=== PATIENT | male | born 1955 | race Caucasian/White ===

== ENCOUNTER 2016-12-07 16:50 | Inpatient (IN) ==
--- NOTE | 2016-12-07 20:46 | HISTORY AND PHYSICAL ---
HISTORY: This is a 61-year-old who was transferred here from [place] to [facility]. He was followed by Dr. Chen. He has oropharyngeal cancer, old left frontal infarct, severe emphysema. I think therapy was last given on 09/03/2015. He smokes 8 cigarettes a day. Drinks on occasion. He uses marijuana on occasion. PAST SURGICAL HISTORY: Status post tonsillectomy. Oral surgery. Had a mass removed from his throat 2013. REVIEW OF SYSTEMS: Apparently he has been losing weight. Not eating. Not taking his medications and they wanted to pursue hospice. He has had a head and cervical spine CT done 10/05/2015. Stable degenerative disk disease C5-6, C6-7, nondisplaced left posterior first rib fracture at that time. Nondisplaced left 1st rib fracture. He has had a clavicle x-ray done on 12/05/2016, old united fracture midshaft right clavicle. He has continued to lose weight. He was treated I think for schizophrenia and depression and wanted to go on hospice. They have tried to put an IV in to help him with fluids and he keeps pulling the IV out. He has a history of coronary artery disease. History of myocardial infarction in the past. Severe emphysema. He complains of sore mouth. PHYSICAL EXAMINATION: GENERAL: On transfer, thin, protein-calorie malnourished anorexic white male. HEENT: Poor dentition. Mouth is sore. No specific cervical adenopathy. LUNGS: Decreased breath sounds both bases. Otherwise clear. CARDIOVASCULAR: Regular rate without murmur or S3. ABDOMEN: Soft. SKIN: Warm and dry. ASSESSMENT AND PLAN: 1. Throat oropharyngeal cancer. Not eating. Protein calorie malnutrition. Refuses IV. No appetite and he wants to pursue hospice as he continues to make decline. 2. Schizophrenia. I believe what they were treating for over at [place]. He is taking some Prolixin. 3. Severe protein calorie malnutrition. 4. Paranoid schizophrenia and bipolar disorder. cc: Masood Hancock MD
[2016-12-07] MEDS: DEPAKENE LIQUID PO SCH (20:48)
[2016-12-07] MEDS: REMERON SOLTAB PO SCH (20:48)
[2016-12-07] MEDS: MBX SOLUTION MT PRN (20:50)
[2016-12-08 06:43] LABS: BASO% 0.2 % (0.0-0.8); EOS# 0.09 X1000 (0.0-0.7); EOS% 0.9 % (0.0-10.0); HEMATOCRIT 33.8 % (42.0-52.0); HEMOGLOBIN 10.4 g/dL (14.0-18.0); LYMPH# 0.33 X1000 (1.2-3.4); LYMPH% 3.4 % (20.5-51.1); MANUAL DIFF NEEDED? YES; MCHC 30.8 g/dL (33-37); MCV 94.2 FL (81-99); MONO# 0.32 X1000 (0.11-0.59); MONO% 3.3 % (1.7-9.3); NEUT% 92.2 % (42.2-75.2); PLT 332 X1000 (130-400); RBC 3.59 XMIL (4.7-6.1)
[2016-12-08 06:45] LABS: AGAP 14; ALBUMIN 3.2 g/dL (3.5-5.0); ALKALINE PHOSPHATASE 82 U/L (32-122); BUN 23 mg/dL (8-22); CALCIUM 9.3 mg/dL (8.8-10.2); CHLORIDE 106 mmol/L (98-107); COSMO 293; GOT 23 U/L (10-34); GPT 20 U/L (10-44); MAGNESIUM 2.2 mg/dL (1.5-2.7); POTASSIUM 4.6 mmol/L (3.5-5.1); SODIUM 146 mmol/L (136-145); TCO2 26 mmol/L (25-35); TOTAL PROTEIN 7.2 g/dL (6.3-8.3)
[2016-12-08 06:58] LABS: BANDS 6 % (0-1); LYMPHS 4 % (21-51); MONO 3 % (1-9)
[2016-12-08] MEDS: THERA M PLUS PO SCH (08:01)
[2016-12-08] MEDS: NEURONTIN PO SCH ×4 (08:02→18:18)
[2016-12-08] MEDS: ARTANE PO SCH ×3 (08:02→17:59)
--- NOTE | 2016-12-08 08:06 | Diag Imaging Result Doc PS360 ---
EXAM: CHEST-PORTABLE INDICATION: weight loss TECHNIQUE: One view COMPARISON: 11/30/2016 FINDINGS: Prominent COPD changes are again noted. There is increased opacity at the right lung base as compared to the previous study suggesting possible developing infiltrate. The patient is rotated toward the right. Multiple old right rib fractures and an old clavicular fracture are again noted. Cardiac silhouette is stable. IMPRESSION: Increased opacity at the right lung base suggesting possible developing infiltrate. Stable chest, otherwise. Electronically signed by Adam Murdock 12/08/2016 8:04 AM
[2016-12-08] MEDS ORDERED: ATIVAN IM ONE (10:37)
--- NOTE | 2016-12-08 14:57 | PROGRESS NOTE ---
DATE: 12/08/2016 SUBJECTIVE: When I evaluated this patient he was resting comfortably in bed. He is alert. I am not quite sure if he is oriented or not because I cannot understand what he is saying. We do have a phone number and apparently the printed circuit boards contact printer is a asw/asuw tactical air controller. He has refused IV, he does not have IV treatment, he does not have appetite and he wants to go ahead and get hospice care. OBJECTIVE: Vital Signs: Temperature 97.9 degrees, pulse 90, respiratory rate 17, blood pressure 128/79, oxygen saturation 99 on room air. HEENT: Head normocephalic. No trauma. PERRLA. Neck: Supple. No JVD. No masses. Central trachea. Chest: Clear to auscultation. No wheezing. No rales. Abdomen: Soft, nontender, nondistended. Extremities: No edema. No clubbing. No cyanosis. decreased muscle mass. Neurological: The patient is alert. I am not sure if this patient is confused or not but he is following commands. LABORATORY: WBC 9.7, hemoglobin 10.4, hematocrit 33.8, platelets 332,000. Sodium 146, potassium 4.6, chloride 106, bicarbonate 26, BUN 23, creatinine 0.8, glucose 72, calcium 9.3, albumin 3.2. ASSESSMENT AND PLAN: 1. Throat/oropharyngeal cancer. Like I mentioned before, this patient is not eating. He has severe Protein calorie malnutrition. He is refusing IV treatment and he wants hospice. general i farmworker on board but we do not have a place to send this patient with hospice at this moment. We will try to contact his asw/asuw tactical air controller. 2. Schizophrenia and bipolar disorder. Aware. Continue with the same management. 3. Severe protein calorie malnutrition. This patient is not eating and he is refusing any kind of treatment. He has been placed on a full liquid diet. Will monitor. cc: Aquiles Kraft MD
[2016-12-08] MEDS: ATIVAN IM PRN (16:18)
[2016-12-08] MEDS: DEPAKENE LIQUID PO SCH (20:36)
[2016-12-08] MEDS: REMERON SOLTAB PO SCH (20:36)
[2016-12-08] MEDS: MBX SOLUTION MT PRN (20:36)
[2016-12-09 07:26] LABS: AGAP 8; BUN 19 mg/dL (8-22); CALCIUM 8.8 mg/dL (8.8-10.2); CHLORIDE 105 mmol/L (98-107); COSMO 285; POTASSIUM 3.9 mmol/L (3.5-5.1); SODIUM 142 mmol/L (136-145); TCO2 29 mmol/L (25-35)
[2016-12-09 07:31] LABS: BASO% 0.1 % (0.0-0.8); EOS% 1.1 % (0.0-10.0); HEMATOCRIT 30.7 % (42.0-52.0); HEMOGLOBIN 9.6 g/dL (14.0-18.0); LYMPH# 0.41 X1000 (1.2-3.4); LYMPH% 4.5 % (20.5-51.1); MANUAL DIFF NEEDED? YES; MCH 29.1 PG (27-31); MCHC 31.3 g/dL (33-37); MONO# 0.35 X1000 (0.11-0.59); MONO% 3.8 % (1.7-9.3); MPV 9.2 FL (7.4-10.4); NEUT% 90.5 % (42.2-75.2); PLT 291 X1000 (130-400)
[2016-12-09 07:53] LABS: BANDS 6 % (0-1); LYMPHS 4 % (21-51); MONO 2 % (1-9)
[2016-12-09] MEDS: THERA M PLUS PO SCH (09:53)
[2016-12-09] MEDS: ARTANE PO SCH ×3 (09:53→18:01)
[2016-12-09] MEDS: NEURONTIN PO SCH ×3 (09:54→18:01)
--- NOTE | 2016-12-09 14:28 | PROGRESS NOTE ---
DATE: 12/09/2016 SUBJECTIVE: This patient is looking better, he has been refusing food on and off, apparently he ate just 25% of his food, I have consulted Hematology Oncology service. Apparently he has been having some visits to their office before, but he stopped doing that. OBJECTIVE: Vital Signs: Temperature 98 degrees, pulse 90, respiratory rate 23, blood pressure 116/74, oxygen saturation 94% on room air. HEENT: Head normocephalic. No trauma. PERRLA. Neck: Supple. No JVD. No masses. Central trachea. Poor dentition. Chest: Clear to auscultation. No wheezing. No rales. Abdomen: Soft, nontender, nondistended. Extremities: No edema. No clubbing. No cyanosis. Decreased muscle mass. Neurological: The patient is alert, it is really hard to understand what he is saying, but he is following commands. LABORATORY: WBC 9.1, hemoglobin 9.6, hematocrit 30.7, platelets 291,000. Sodium 142, potassium 3.9, chloride 105, bicarbonate 29, BUN 19, creatinine 0.6, glucose 87, calcium 8.8. ASSESSMENT AND PLAN: 1. Throat/oropharyngeal cancer, Hematology/Oncology has been consulted. Apparently he has been in their office before, but he did not go to his appointments. He has been refusing IV treatment and apparently he wants hospice, but I am not quite sure about this information. He was at [facility] and they sent this patient over here because he was not eating and declining. 2. Schizophrenia and bipolar disorder. Aware. Continue with the same management. 3. Severe protein calorie malnutrition. This patient is not eating and he is refusing any kind of treatment. He has been placed on full liquid diet. We will monitor. Since this patient does not have any family members, the director social service is on board. 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 cc: Aquiles Kraft MD
[2016-12-09] MEDS: ATIVAN IM PRN (15:33)
--- NOTE | 2016-12-09 16:29 | CONSULTATION ---
DATE OF CONSULTATION: 12/09/[address] Castro. Consultation is for head and neck cancer, patient known to us. HISTORY OF PRESENT ILLNESS: Mr. Delgado is a 61-year-old male who is known to us as we have previously treated him for head and neck cancer who apparently has been at [facility] being treated for psych issues. Patient has a history of schizophrenia. The patient has been transferred to [facility] due to his inability to eat and for weight loss and overall decline in performance status. The patient previously completed Erbitux with radiation therapy. His last dose of Erbitux was 09/14/2016. He finished radiation therapy on 09/25. Patient was last seen in our office around 09/25/2016. Since that time he has been admitted to [facility] as mentioned previously. PAST MEDICAL PROBLEMS: 1. Paranoid schizophrenia. 2. Neuropathy. SURGICAL HISTORY: Throat biopsy in 2012, 2016. SOCIAL HISTORY: Patient lives in a alf and is supervised closely in regards to his medications and meals. Current smoker. He also sometimes chews tobacco. The patient also drinks alcohol occasionally. FAMILY HISTORY: His father is alive. There is a family history of an unknown type of cancer. As far as noted, the patient has no contact with his family. REVIEW OF SYSTEMS: Ten point review of systems has been completed. It is negative except for as per the HPI. PHYSICAL EXAMINATION: Vital Signs: Temperature in 98.0 degrees, heart rate 90 , respirations 23, blood pressure 116/74, O2 saturation 94% on room air. General: male who is rather thin lying on his stomach in his hospital bed eating soup. No one at bedside. HEENT : Head appears to be normocephalic atraumatic. Eyes: Pupils equal, round, reactive. Respiratory: Patient appears to have normal respiratory effort. Gastrointestinal: Abdomen does not appear to be distended. Musculoskeletal: No obvious bony abnormalities. Extremities: No swelling noted. Neurologic: Patient is alert. Moves all extremities well. In no acute distress. LABS AND STUDIES: White blood cells 9.19, hemoglobin 9.6, hematocrit 30.7, platelets 291,000. Sodium 142, potassium 3.9, chloride 105, CO2 29, BUN 19, creatinine 0.6, glucose 87. ASSESSMENT/PLAN: 1. T4a, N2b, M0 stage FLORES [id number]-[id number] cancer. Patient has now completed concurrent chemotherapy and radiation with Erbitux as of 09/25/2016. Patient has yet to follow up with us after his treatment. Typically, repeat scans after radiation are done 6- 8 weeks out from completion of treatment. Most recent scan we have currently is from July 2016 prior to initiation of treatment. Currently there is a discussion about this patient being admitted to hospice. There has not been any recent evaluation in regards to the patient' s cancer status as he did not get a post treatment scan. We will continue to follow along and discuss with the patient and see if he would be willing to do restaging scans potentially. 2. Schizophrenia. Continue current management. 3. Severe protein calorie malnutrition. The patient is currently taking some things by mouth. Continue to monitor closely. Will continue to treat electrolytes and replace them as needed. 4. Decline in performance status. Again his current cancer status is unknown due to not having any repeat scans post treatment. We want to thank you for consulting us on Mr. Delgado. We will continue to follow along and adjust our treatment plan as per his hospital course. Dictated by FELICE Ring for Bhakti Roberts MD cc: Bhakti Roberts MD I have seen and examined the patient and agree with the above A/P. Bhakti Roberts MD MTDD
[2016-12-09] MEDS: HALDOL IV PRN (18:49)
[2016-12-09] MEDS: REMERON SOLTAB PO SCH (21:18)
[2016-12-09] MEDS: DEPAKENE LIQUID PO SCH (21:19)
[2016-12-09] MEDS: MBX SOLUTION MT PRN (21:19)
[2016-12-10] MEDS: ARTANE PO SCH ×3 (09:06→17:54)
[2016-12-10] MEDS: THERA M PLUS PO SCH (09:06)
[2016-12-10] MEDS: NEURONTIN PO SCH ×3 (09:06→17:54)
[2016-12-10] MEDS: ATIVAN IM PRN ×2 (10:10→14:24)
--- NOTE | 2016-12-10 12:59 | PROGRESS NOTE ---
DATE: 12/10/2016 SUBJECTIVE: This patient is looking better. When I examined the patient this patient was eating oatmeal. He has been tolerating diet today about 50%. Hematology Oncology evaluated this patient. This patient has a cancer at the base of his tongue. We will continue to monitor. Basically he is homeless and we are trying to get placement for him. There is a possibility of hospice care with this patient. OBJECTIVE: Vital Signs: Temperature 98.5 degrees, pulse 103, respiratory rate 18, blood pressure 141/88, oxygen saturation 96 on room air. HEENT: Head normocephalic. No trauma. PERRLA. Neck: Supple. No JVD. No masses. Central trachea. Poor dentition. Chest: Clear to auscultation. No wheezing. No rales. Abdomen: Soft, nontender, nondistended. Extremities: No edema. No clubbing. No cyanosis. Decreased muscle mass. Neurological: The patient is alert. He is really hard to understand what he is saying. He cannot articulate very well his words. He is following commands and he is tolerating food. LABORATORY: No lab work done today. ASSESSMENT AND PLAN: 1. Cancer at the level of the base of his tongue. Hematology/Oncology is following this patient. He did see receive treatment but he did not go for followup or new of studies. At this point, we do not know if this cancer is worse or better. Hematology/Oncology on board. 2. Schizophrenia and bipolar disorder. Aware. Continue with the same management. 3. Severe protein calorie malnutrition. This patient is tolerating food mostly full liquid diet. He is refusing any kind of treatment and IV line placement, will monitor. Since this patient does not have any family members, he is homeless, the family welfare social work professor is on board. 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 cc: Aquiles Kraft MD
[2016-12-10] MEDS: HALDOL IV PRN (13:02)
[2016-12-10] MEDS: HALDOL IM PRN (19:00)
[2016-12-10] MEDS: REMERON SOLTAB PO SCH (21:01)
[2016-12-10] MEDS: DEPAKENE LIQUID PO SCH (21:01)
[2016-12-10] MEDS: MBX SOLUTION MT PRN (21:02)
[2016-12-11] MEDS: ARTANE PO SCH ×3 (09:01→21:36)
[2016-12-11] MEDS: THERA M PLUS PO SCH (09:01)
[2016-12-11] MEDS: NEURONTIN PO SCH ×3 (09:01→21:36)
[2016-12-11] MEDS: ATIVAN IM PRN ×2 (09:02→21:36)
--- NOTE | 2016-12-11 17:10 | PROGRESS NOTE ---
DATE: 12/11/2016 SUBJECTIVE: No acute events. This patient is doing fine. He is tolerating food about 50%. OBJECTIVE: Vital Signs: Temperature 97.7 degrees, pulse 86, respiratory rate 18, blood pressure 131/81, oxygen saturation 98 on room air. HEENT: Head normocephalic. No trauma. PERRLA. Neck: Supple. No JVD. No masses. Central trachea. Poor dentition. Chest: Clear to auscultation. No wheezing. No rales. Abdomen: Soft, nontender, nondistended. No hepatosplenomegaly. Extremities: No edema. No clubbing. No cyanosis. Decreased muscle mass. Neurological Examination: The patient is alert. He is really hard to understand what he is saying. He cannot articulate very well his words. He is following commands and he is tolerating food. LABORATORY: No lab work done today. ASSESSMENT AND PLAN: 1. Cancer at the level of the base of his tongue. Hematology/Oncology is following this patient. He did receive treatment but he did not go for followup or new studies. At this point, we do not know if this cancer is worse or better. 2. Schizophrenia and bipolar disorder. Aware. Continue with the same management. 3. Severe protein calorie malnutrition. This patient is tolerating food, mostly full liquid diet. He is refusing any kind of IV line placement or treatment. Since this patient does not have any family members, he is homeless, the social science research assistant is on board and she already contacted the state for evaluation and to coordinate a meeting with this patient. cc: Aquiles Kraft MD
[2016-12-11] MEDS: REMERON SOLTAB PO SCH (21:36)
[2016-12-11] MEDS: DEPAKENE LIQUID PO SCH ×2 (21:37→21:39)
[2016-12-12] MEDS: NEURONTIN PO SCH ×3 (09:48→18:09)
[2016-12-12] MEDS: THERA M PLUS PO SCH (09:48)
[2016-12-12] MEDS: ARTANE PO SCH ×3 (09:48→18:08)
--- NOTE | 2016-12-12 13:14 | PROGRESS NOTE ---
DATE: 12/12/2016 SUBJECTIVE: No acute events. This patient is doing fine. He is tolerating about the 50% of his food. OBJECTIVE: Vital Signs: Temperature 98.3 degrees, pulse 86, respiratory rate 18, blood pressure 130/73, O2 saturation 99 on room air. HEENT: Head normocephalic. No trauma. PERRLA. Neck: Supple. No JVD. No masses. Central trachea. Poor dentition. Chest: Clear to auscultation. No wheezing. No rales. Abdomen: Soft, nontender, nondistended. No hepatosplenomegaly. Extremities: No edema. No clubbing. No cyanosis. Neurological: The patient is alert. It is really hard to understand what he is saying because he cannot articulate very well his words. He is following commands and he is tolerating food. LABORATORY: No lab work done today. ASSESSMENT AND PLAN: 1. Cancer at the level of the base of his tongue. Hematology Oncology is following this patient. He did receive treatment but he did not go for a followup for neuro status. At this point, we do not know if his cancer is worse or better. 2. Schizophrenia and bipolar disorder. Aware. Continue with the same management. 3. Severe protein calorie malnutrition. This patient is tolerating food but mostly full liquid diet. He is refusing any kind of IV line placement or treatment. This patient is homeless. process worker is on board. She has already contacted the [facility] for evaluation and to coordinate a meeting with this patient and placement. cc: Aquiles Kraft MD
[2016-12-12] MEDS: DEPAKENE LIQUID PO SCH (21:25)
[2016-12-12] MEDS: ATIVAN IM PRN (21:26)
[2016-12-12] MEDS: REMERON SOLTAB PO SCH (21:26)
[2016-12-13] MEDS: ATIVAN IM PRN ×3 (02:12→22:26)
[2016-12-13 06:49] LABS: MANUAL DIFF NEEDED? NO
[2016-12-13 06:56] LABS: BASO% 0.3 % (0.0-0.8); EOS# 0.11 X1000 (0.0-0.7); EOS% 1.4 % (0.0-10.0); HEMATOCRIT 36.1 % (42.0-52.0); HEMOGLOBIN 10.9 g/dL (14.0-18.0); IMM GRAN# 0.04 X1000 (0.0-0.04); IMM GRAN% 0.5 % (0.0-0.5); LYMPH# 0.51 X1000 (1.2-3.4); LYMPH% 6.6 % (20.5-51.1); MCHC 30.2 g/dL (33-37); MCV 92.8 FL (81-99); MONO# 0.59 X1000 (0.11-0.59); MONO% 7.6 % (1.7-9.3); MPV 9.8 FL (7.4-10.4); NEUT% 83.6 % (42.2-75.2); PLT 372 X1000 (130-400); RBC 3.89 XMIL (4.7-6.1)
[2016-12-13 07:17] LABS: AGAP 12; BUN 17 mg/dL (8-22); CALCIUM 9.4 mg/dL (8.8-10.2); CHLORIDE 103 mmol/L (98-107); COSMO 283; POTASSIUM 4.2 mmol/L (3.5-5.1); SODIUM 142 mmol/L (136-145); TCO2 27 mmol/L (25-35)
[2016-12-13] MEDS: ARTANE PO SCH ×3 (10:40→18:07)
[2016-12-13] MEDS: NEURONTIN PO SCH ×3 (10:41→18:07)
[2016-12-13] MEDS: THERA M PLUS PO SCH (10:41)
[2016-12-13] MEDS: DURAGESIC 12 MICROGM/HR PATCH TD SCH (10:41)
[2016-12-13] MEDS: REMERON SOLTAB PO SCH (22:26)
[2016-12-13] MEDS: DEPAKENE LIQUID PO SCH (22:26)
[2016-12-14] MEDS: ARTANE PO SCH ×3 (09:15→18:40)
[2016-12-14] MEDS: ATIVAN IM PRN (09:16)
[2016-12-14] MEDS: NEURONTIN PO SCH ×3 (09:16→18:41)
[2016-12-14] MEDS: THERA M PLUS PO SCH (09:16)
[2016-12-14] MEDS: MBX SOLUTION MT PRN ×2 (12:56→23:08)
[2016-12-14] MEDS: REMERON SOLTAB PO SCH (23:08)
[2016-12-14] MEDS: DEPAKENE LIQUID PO SCH (23:08)
--- NOTE | 2016-12-15 00:29 | PROGRESS NOTE ---
DATE: 12/14/2016 SUBJECTIVE: Mr. Danny devine was sitting on a chair and eating some ice cream. OBJECTIVE: Vital signs: Temperature 97.4 degrees, pulse 90, respirations 18, blood pressure 143/81. HEENT: Pupils equal, round. Lungs: Clear in all lung jean-baptiste. Cardiovascular: Regular rhythm and rate without murmur or S3. Abdomen: Soft. Skin: Is warm and dry. LAB REVIEW: From the 16 hematocrit is stable. Chemistries look okay. ASSESSMENT AND PLAN: 1. Cancer the level base of the tongue, hematology, oncology is following the patient received treatment but did not go back for followup, at this point I do not know if his cancer is worse or better. 2. Schizophrenia, bipolar disorder. Continue same management. 3. Protein calorie malnutrition. Apparently he is starting to get a little food down and then question is what are we going to do where is he going go placement status, he has been followed by Dr. Bhakti Roberts, has a T4a N2BMO stage 4a base of tongue cancer. The patient has now completed concurrent chemotherapy and radiation with Erbitux 09/25/2016. Patient has yet to follow up with Dr. Roberts for treatment, typically repeat the scans in 6-8 weeks and see where we are. 4. Schizophrenia. 5. Severe protein calorie malnutrition. Encourage p.o. intake. 6. Decline in performance status. REVIEW OF PRESENT ORDERS: He is on valproic acid 375 mg at bedtime, Artane 5 mg t.i.d., multivitamin 1 a day, mirtazapine 15 mg at bedtime, Ativan 2 mg IM q.4 hours p.r.n., Haldol as needed, Neurontin 300 mg t.i.d., Fluphenazine 125 mg IM every 14 days, fentanyl patch 12 mcg q.72 hours. cc: Masood Hancock MD
[2016-12-15] MEDS: ATIVAN IM PRN (10:44)
[2016-12-15] MEDS: THERA M PLUS PO SCH (13:03)
[2016-12-15] MEDS: ARTANE PO SCH ×3 (13:03→16:59)
[2016-12-15] MEDS: NEURONTIN PO SCH ×3 (13:03→16:59)
--- NOTE | 2016-12-15 14:23 | DISCHARGE SUMMARY ---
ADMISSION DATE: 12/07/2016 DISCHARGE DATE: 12/15/2016 HISTORY OF PRESENT ILLNESS: This is a 61-year-old who was transferred from [facility]. He was not eating, He has oropharyngeal cancer, old left frontal infarct, severe emphysema, and he is status post tonsillectomy and oral surgery. He had a mass removed from his throat in 2013. He had a consultation with Dr. Roberts and Aurea Anna saw him. He has a T4a, N2b, M0 stage Aimee base- of-tongue cancer. Patient has completed concurrent chemotherapy, radiation, and Erbitux on 09/17/2016. The patient has not had any followup. Typically, they repeat scans and irradiation 6- 8 weeks after the 1st treatment. Most recent scan was from July 2013, prior to initiation of treatment. There is discussion about the patient being admitted to hospice and there has been no recent evaluation in the records, and did not get post treatment scan. Continued to follow. He has schizophrenia and he is not swallowing well. He will put food in and spit it out. He was admitted to hospital with the idea of getting hospice, but he has continued to get a little stronger. He is ambulating. He is putting food in his mouth and he will spit it out. DISCHARGE PLANS: I am not sure he has a place to go at this point and I believe [facility] is involved. He seems to be cooperative and awake and much more functional. The plan is to let him go to [facility] MEDICATIONS: At this point, will be fentanyl patch 12 mcg patch q.72 hours; Prolixin 125 mg IM q.14 days; Neurontin 300 mg t.i.d.; Remeron 15 mg at bedtime; multivitamin 1 daily; Artane 5 mg t.i.d.; valproic acid 375 mg at bedtime. DISPOSITION: We will discharge him to [facility] cc: Masood Hancock MD
[2016-12-15] MEDS: DEPAKENE LIQUID PO SCH (20:17)
[2016-12-15] MEDS: REMERON SOLTAB PO SCH (20:17)
[2016-12-15] MEDS: MBX SOLUTION MT PRN (20:17)
[2016-12-16] MEDS ORDERED: PROLIXIN-D IM SCH (09:00)
[2016-12-16] MEDS: NEURONTIN PO SCH ×2 (09:40→14:25)
[2016-12-16] MEDS: THERA M PLUS PO SCH (09:40)
[2016-12-16] MEDS: ARTANE PO SCH ×2 (09:40→14:25)
[2016-12-16] MEDS: DURAGESIC 12 MICROGM/HR PATCH TD SCH (11:50)
--- NOTE | 2016-12-16 15:10 | PROGRESS NOTE ---
DATE: 12/16/2016 SUBJECTIVE: Mr. Delgado is lying on his bed. He is dressed. He is able to ambulate around. He is getting ice cream down. He wants to try a puree diet so will try that. He is not in any pain at this time. He is oriented to place and person. OBJECTIVE: Vital signs: His temp is 97.5 degrees, pulse 99, respirations 19, blood pressure 127/89. Neck: CVP less than 6 cm. Lungs: Clear in all lung jean-baptiste. Cardiovascular: Regular rhythm and rate without murmur or S3. Abdomen: Soft. Skin: Warm and dry. Intake and output: Urine output 4 L. LAB: CBC reviewed from and electrolytes from the 16th, unremarkable. ASSESSMENT AND PLAN: Note he is trying to get into the regular long-term and they are going to evaluate. He does seem to be swallowing better. He seems to be stronger and he is seems to be cooperative. Continue his present medication. We will try to advance him to a pureed diet and see how he does. He is getting ice cream down. cc: Masood Hancock MD
[2016-12-16] MEDS: REMERON SOLTAB PO SCH (20:46)
[2016-12-16] MEDS: DEPAKENE LIQUID PO SCH (20:47)
[2016-12-17] MEDS: NEURONTIN PO SCH ×3 (10:09→16:49)
[2016-12-17] MEDS: ARTANE PO SCH ×3 (10:09→16:48)
[2016-12-17] MEDS: THERA M PLUS PO SCH (10:10)
[2016-12-17] MEDS: ATIVAN IM PRN (10:10)
--- NOTE | 2016-12-17 17:37 | PROGRESS NOTE ---
DATE: 12/17/2016 SUBJECTIVE: He is up sitting in a chair. He was counting his money. He is eating a little better. Energy seems to be good. He is not in any pain. Seems to be in good spirits. OBJECTIVE: Vital signs: Pulse 112, respirations 80, blood pressure 135/85. Lungs: Clear in all lung jean-baptiste. Cardiovascular: Regular rhythm and rate without murmur or S3. Abdomen: Soft. Skin: Warm and dry. LABORATORY: From the 16th reviewed. ASSESSMENT AND PLAN: 1. Throat and oropharyngeal cancer. He has finished 1st course of treatment and will get re- staged I think in a couple weeks. I think that is the plan. 2. Schizophrenia and bipolar disorder. Medications seem to be effective. 3. Severe protein calorie malnutrition. He seems to be swallowing a little better and is much more cooperative, looking for placement disposition. cc: Masood Hancock MD
[2016-12-17] MEDS: DEPAKENE LIQUID PO SCH (22:40)
[2016-12-17] MEDS: MBX SOLUTION MT PRN (22:40)
[2016-12-17] MEDS: REMERON SOLTAB PO SCH (22:40)
[2016-12-18] MEDS: THERA M PLUS PO SCH (08:30)
[2016-12-18] MEDS: NEURONTIN PO SCH ×4 (08:30→17:16)
[2016-12-18] MEDS: ARTANE PO SCH ×4 (08:30→17:16)
[2016-12-18] MEDS: ATIVAN IM PRN ×2 (15:44→22:01)
--- NOTE | 2016-12-18 16:11 | PROGRESS NOTE ---
DATE: 12/18/2016 SUBJECTIVE: The patient is doing better. Eating more. Getting Ensure down. Stronger. Still complains of throat bothersome, but looks better and feels better. OBJECTIVE: Vital Signs: Temp 97.4 degrees, pulse 98, respirations 20, blood pressure 106/60. Lungs: Clear in all lung jean-baptiste. Cardiovascular exam: Regular rhythm and rate without murmur or S3. Abdomen: Soft. Skin: Warm and dry. Extremities: No pedal edema. LAB: Reviewed from the . We have not had any news since then. This looked good. ASSESSMENT AND PLAN: 1. He looks like he is doing a little better. We are waiting on placement. Encourage oral intake. Encourage and continue activities. Getting stronger. He has an oropharyngeal cancer, has received initial treatment and is going to get restaged in a couple weeks I believe. 2. Schizophrenia, bipolar. It is stabilized. Continue present medication. 3. Severe protein calorie malnutrition, which is improving with oral intake. He does not want a nasogastric tube. He has been very cooperative and easy to deal with. cc: Masood Hancock MD
[2016-12-18] MEDS: REMERON SOLTAB PO SCH (21:47)
[2016-12-18] MEDS: DEPAKENE LIQUID PO SCH (21:47)
[2016-12-19] MEDS: ATIVAN IM PRN ×2 (06:47→21:42)
[2016-12-19] MEDS: THERA M PLUS PO SCH (09:23)
[2016-12-19] MEDS: NEURONTIN PO SCH ×3 (09:23→16:45)
[2016-12-19] MEDS: ARTANE PO SCH ×3 (09:23→16:45)
[2016-12-19] MEDS: DURAGESIC 12 MICROGM/HR PATCH TD SCH (09:24)
--- NOTE | 2016-12-19 14:16 | PROGRESS NOTE ---
DATE: 12/19/2016 SUBJECTIVE: He is awake. Still eating and trying to eat mainly ice cream and soft food. He does seem to be getting stronger. He remains afebrile. OBJECTIVE: Temperature 98.2 degrees, pulse 114, respiration 20, blood pressure 131/75.HEENT: Pupils are equal and round. Lungs: Clear in all lung jean-baptiste. Cardiovascular: Regular rhythm and rate without murmur or S3. Abdomen: Soft. Skin: Warm and dry. Genitourinary: Urine output 2700. ASSESSMENT/PLAN: 1. Oropharyngeal cancer. Encourage p.o. intake. He seems to be getting stronger, seems to be improving. Will get re-staged in a couple weeks. 2. Schizophrenia and bipolar. Looking for, waiting for placement. 3. Severe protein calorie malnutrition. I think we are making some progress. Presently on valproic acid 375 mg at bedtime, Artane 5 mg 3 times daily, multivitamin, Remeron 15 mg at bedtime, Ativan 2 mg IM q.4 hours p.r.n., lactate 5 mg q.4 hours p.r.n., Neurontin 300 mg 3 times daily, fluphenazine 125 mg IM q.2 weeks, fentanyl patch q.72 hours 12 mcg. cc: Masood Hancock MD
[2016-12-19] MEDS: REMERON SOLTAB PO SCH (21:42)
[2016-12-19] MEDS: DEPAKENE LIQUID PO SCH (21:42)
[2016-12-20] MEDS: NEURONTIN PO SCH ×3 (10:02→16:18)
[2016-12-20] MEDS: ARTANE PO SCH ×3 (10:03→16:17)
[2016-12-20] MEDS: THERA M PLUS PO SCH (10:04)
--- NOTE | 2016-12-20 13:00 | PROGRESS NOTE ---
DATE: 12/20/2016 SUBJECTIVE: Mr. Delgado is sleeping. Apparently slept pretty good last night. He has been eating. Every day improving a little bit. Energy level seems to be better. Ambulating and walk without difficulty. OBJECTIVE: Vital signs: Temperature 97.7 degrees, pulse 107, respirations 20, blood pressure 134/89. Lungs: Clear in all lung jean-baptiste. Cardiovascular: Regular rhythm and rate without murmur or S3. Abdomen: Soft. Skin: Warm and dry. Intake and output: Urine output 3200 mL. LAB: Reviewed from the . ASSESSMENT AND PLAN: 1. Oropharyngeal cancer, stable. Difficulty swallowing but improving. 2. Schizophrenia and bipolar. Well controlled. Continue present medication. 3. Protein calorie malnutrition. Improving his p.o. intake. 4. General weakness. He is improving and getting stronger. Looking for skilled nursing placement. cc: Masood Hancock MD
[2016-12-20] MEDS: ATIVAN IM PRN ×2 (13:17→22:37)
[2016-12-20] MEDS: DEPAKENE LIQUID PO SCH (22:37)
[2016-12-20] MEDS: REMERON SOLTAB PO SCH (22:37)
[2016-12-21] MEDS: ATIVAN IM PRN (03:22)
[2016-12-21] MEDS: ARTANE PO SCH ×3 (08:34→18:31)
[2016-12-21] MEDS: THERA M PLUS PO SCH (08:34)
[2016-12-21] MEDS: NEURONTIN PO SCH ×3 (08:35→18:31)
[2016-12-21] MEDS: MBX SOLUTION MT PRN (21:42)
[2016-12-21] MEDS: DEPAKENE LIQUID PO SCH (21:42)
[2016-12-21] MEDS: REMERON SOLTAB PO SCH (21:42)
[2016-12-22] MEDS: MBX SOLUTION MT PRN ×3 (08:28→23:40)
[2016-12-22] MEDS: ARTANE PO SCH ×3 (08:34→18:42)
[2016-12-22] MEDS: NEURONTIN PO SCH ×3 (08:34→18:42)
[2016-12-22] MEDS: THERA M PLUS PO SCH (08:34)
[2016-12-22] MEDS: DURAGESIC 12 MICROGM/HR PATCH TD SCH (09:41)
[2016-12-22] MEDS: ATIVAN IM PRN (12:39)
--- NOTE | 2016-12-22 14:52 | PROGRESS NOTE ---
DATE: 12/22/2016 SUBJECTIVE: Today Mr. Delgado referred to be doing fine. There have not been any acute changes overnight. OBJECTIVE: Vital signs: Blood pressure is 138/91, pulse of 109, respiration is 18, temperature is 97.7 degrees. General: Mr. Delgado is a 61-year-old male. He was in bed and there was a sitter at the bedside for one-to-one observation. HEENT: Mucosa was pink and moist. Anicteric. Acyanotic. Neck: Supple. Chest: Clear. Cardiovascular: Regular rate and rhythm. Abdomen: Soft, nontender. ARSON AND BOMB INVESTIGATOR: Patient is awake and alert. Has a very gargling speech but is able to move all his extremities. LABORATORY: No lab work today. ASSESSMENT: 1. Oropharyngeal cancer with some degree of dysphagia, however according to the sitter the patient has been eating very well. 2. Schizophrenia and bipolar disorder. We will continue with current medication. 3. Protein calorie malnutrition. 4. Generalized weakness. In general, I think Mr. Delgado is relatively stable. The clinical social work aide was at the bedside at the time of the interview. She said that they are waiting on the State recommendation. There is a plan that patient could potentially be discharged on Wednesday. cc: Oliverio Gabriel MD MTDD
[2016-12-22] MEDS: REMERON SOLTAB PO SCH (21:39)
[2016-12-22] MEDS: DEPAKENE LIQUID PO SCH (21:39)
[2016-12-23] MEDS: THERA M PLUS PO SCH (10:12)
[2016-12-23] MEDS: NEURONTIN PO SCH ×3 (10:12→17:32)
[2016-12-23] MEDS: ARTANE PO SCH ×3 (10:12→17:31)
[2016-12-23] MEDS: ATIVAN IM PRN (11:36)
--- NOTE | 2016-12-23 12:34 | PROGRESS NOTE ---
DATE: 12/23/2016 SUBJECTIVE: Today Mr. Delgado referred to be doing fine. No acute changes overnight. Per the nursing staff, the night has been uneventful. OBJECTIVE: General: Mr. Delgado is a 61-year-old male. He was in bed. No distress. Vital signs: Blood pressure is 130/89, pulse of 101, respirations 70, temperature is 97.5 degrees. HEENT: Mucosa is pink and moist. Anicteric. Acyanotic. Physical exam is unchanged. ASSESSMENT: 1. Oropharyngeal carcinoma with some degree of dysphagia. 2. History of schizophrenia and bipolar disorder. 3. Protein calorie malnutrition. 4. Generalized weakness. PLAN: Today Mr. Delgado continues to be stable. We are pending on the State for adequate disposition. cc: Oliverio Gabriel MD
[2016-12-23] MEDS: MBX SOLUTION MT PRN (21:34)
[2016-12-23] MEDS: REMERON SOLTAB PO SCH (21:34)
[2016-12-23] MEDS: DEPAKENE LIQUID PO SCH (21:36)
[2016-12-24] MEDS ORDERED: DUONEB (A & A) INH PRN (08:28)
--- NOTE | 2016-12-24 08:45 | Diag Imaging Result Doc PS360 ---
EXAM: CHEST-PORTABLE HISTORY: dyspnea TECHNIQUE: AP portable at 0835 COMMENT: The current study is compared without of 12/08/2016. There is definite increase in the interstitial opacity over the left base compared to the previous study. Some of this may be due to less extensive inspiration. There is also increased opacity laterally in the right midlung. IMPRESSION: Pulmonary edema and/or pneumonia worse than on 12/08/2016. Electronically signed by Tavo Monson 12/24/2016 8:43 AM
[2016-12-24] MEDS: ARTANE PO SCH ×2 (09:39→13:40)
[2016-12-24] MEDS: THERA M PLUS PO SCH (09:40)
[2016-12-24] MEDS: NEURONTIN PO SCH ×2 (09:40→13:41)
[2016-12-24] MEDS: ATIVAN IM PRN ×2 (09:47→14:14)
[2016-12-24] MEDS: HALDOL IM PRN (10:47)
--- NOTE | 2016-12-24 11:55 | PROGRESS NOTE ---
DATE: 12/24/2016 Today, the patient continues to be relatively stable. He continues to be needing one-to-one observation and care. OBJECTIVE: Vital signs: Blood pressure is 145/83, pulse of 110, respirations 16, temperature 97.9 degrees. General: The patient is a 61-year-old . Chest: Air entry is bilaterally reduced. A few bibasilar crepitations. Cardiovascular: Regular rate and rhythm. Abdomen: Soft, nontender. Extremities: No pedal edema. CELLULOID TRIMMER: Patient is awake, alert. HEENT: Oral mucosa, The patient always has the mouth open with some erythematous changes in the oral mucosa. ASSESSMENT: 1. Oropharyngeal carcinoma with some degree of dysphagia. 2. Cough with hypoxemia. We did a chest x-ray, which actually shows worsening of pneumonia with pulmonary edema. We are going to do a CT scan of the chest to get a better picture of the lung field. 3. Protein calorie malnutrition. 4. Generalized weakness. 5. History of schizophrenia and bipolar disorder noted. In general, the patient is relatively stable. He has continued to be coughing more. A chest x-ray shows worsening of possible pneumonia, so we will do a CT scan to have a better picture of his lungs and start him on some oral antibiotics. Of note, on x-rays he seems to have an underlying chronic obstructive pulmonary disease which after the CT scan we will address as well. The patient will need a lot of assistance to cater for himself, especially for dressing and for feeding. He has been needing assistance from the nursing staff to help him feed and dress himself. He also needs observation and tutoring on ambulation. So I think he definitely needs help for his ADLs, and because of that, we recommend that he is placed in an institution. I have already discussed this with the nurse in charge at the state level, and they are looking into this. cc: Oliverio Gabriel MD MTDD
[2016-12-24] MEDS ORDERED: CHLORASEPTIC SORE THROAT LOZENGE MT PRN (13:15)
[2016-12-24] MEDS ORDERED: CHLORASEPTIC SORE THROAT LOZENGE MT ONE (13:15)
--- NOTE | 2016-12-24 14:09 | Diag Imaging Result Doc PS360 ---
EXAM: CT THORAX W/O CONTRAST HISTORY: pneumonia TECHNIQUE: Dose reduction protocol COMPARISON: None. FINDINGS: The lungs are hyperexpanded. There is severe emphysema. Increased interstitial markings primarily in the lower lungs. No consolidation. No pleural effusions. No cardiomegaly. There is a calcified granuloma anteriorly in the right lung. There are multiple old right rib fractures. Calcified right hilar lymph nodes are present. IMPRESSION: 1.Severe emphysema 2.Increased interstitial markings bilaterally which may simply be fibrosis although there could be a combination of fibrosis and infiltrates in the lower lungs 3.There is evidence of a prior granulomatous infection Electronically signed by Giovanni Gill 12/24/2016 2:07 PM
[2016-12-24 14:38] VITALS: BP 120/73
[2016-12-24] MEDS ORDERED: COMBIVENT RESPIMAT INHALER INH SCH (16:00)
[2016-12-24] MEDS ORDERED: ADVAIR 250/50 DISKUS INH SCH (19:30)
[2016-12-24] MEDS ORDERED: DOXYCYCLINE PO SCH (21:00)
--- NOTE | 2016-12-25 06:06 | DISCHARGE SUMMARY ---
ADMISSION DATE: 12/07/2016 DISCHARGE DATE: 12/24/2016 The patient was initially set for discharge on 12/15/2016. PERTINENT PROCEDURES: Chest x-ray showed increased opacity in the right lung base suggesting possible developing infiltrate. Stable chest otherwise. CONSULTATION: Dr. Bhakti Roberts with Hematology/Oncology. DISCHARGE DIAGNOSES: 1. Oropharyngeal carcinoma with some degree of dysphagia. The patient will need assistance caring for himself especially with dressing and feeding as well as with ADLs. He has been assessed at the state level. He has been approved for rehab. 2. Cough with chronic hypoxemia. The patient underwent a chest CT that was read by Dr. Gabriel with severe COPD with fibrotic changes. He will be placed on bronchodilators, p.o. antibiotics and steroid taper. 3. Protein calorie malnutrition. Continue with assisted feedings in supplementation. 4. Generalized weakness. Patient is being discharged to rehab. 5. History of schizophrenia and bipolar disorder. As noted, he has been evaluated by the [facility]. HOSPITAL COURSE: Briefly, Mr. Delgado is a 61-year-old male who was transferred from [facility] because he was not eating. He has a history of oropharyngeal cancer, old left frontal infarct, severe emphysema status post tonsillectomy and oral surgery. He had a mass removed from his throat in 2013. His coating mixer is Dr. Roberts. 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 He completed concurrent chemotherapy radiation and Erbitux on 09/17/2016. He did not follow through with any follow up or repeat scan. He was initially put in the hospital and continued to get stronger. He has ambulated. He at times will put food in his mouth and chew and at times he will put food in his mouth and spit it out. He does require assistance with eating all meals. He was being treated for his schizophrenia at [facility] before he was transferred to [facility]. He was initially set for discharge on 12/15/2016 to rehab at [facility]. However, his diagnosis triggered a state eval. He was evaluated by the [facility] on 12/22/2016. I just spoke with social worker assistant and we have gotten approval for discharge to rehab today. The patient's O2 saturations will run anywhere from 88-91 without O2. He frequently walks in the hallway. With O2, he is in the upper 90s. We did a CT of the chest. It was read by Dr. Gabriel. It looks like severe COPD and emphysema with robotic changes. He is being initiated on prednisone, oral antibiotics as well as bronchodilators for COPD treatment without exacerbation. He is being discharged to rehab today. VITAL SIGNS: Temperature is 97.9 degrees, heart rate 110, respirations 16, blood pressure is 130/70. O2 was 90% on room air DISCHARGE DIET: Puree with Ensure with each meal. DISCHARGE MEDICATIONS: As per Dr. Gabriel. Please see MAR. FOLLOWUP: Mr. Delgado is being discharge to rehab facility. He has a followup appointment with Dr. Bhakti Roberts on 01/05/2017 at 9:50 in the morning. The patient can return to the ED for any worsening of symptoms. TIME SPENT: 30 minutes. Dictated by ANN Reina for Oliverio Gabriel MD cc: Oliverio Gabriel MD
[2016-12-25] MEDS ORDERED: PREDNISONE PO SCH (09:00)
== END 2016-12-24 15:04 ==
LOC: SUATTDRO 16:50 → DIRADM 16:50 → 3N 18:25
PROVIDERS: ATTEND Internal Medicine

== ENCOUNTER 2016-12-24 20:07 | Inpatient (IN) ==
[2016-12-24 21:29] LABS: URINE CULTURE NEEDED? NO; URINE MICRO REVIEW NEEDED? NO; URINE SOURCE CLEAN CATCH
--- NOTE | 2016-12-24 21:35 | Diag Imaging Result Doc PS360 ---
EXAM: CHEST-PORTABLE HISTORY: psyc TECHNIQUE: COMPARISON: Compared to study performed 12 hours earlier FINDINGS: The lungs are hyperexpanded. The heart is not enlarged. There are multiple old right rib fractures. There are increased interstitial markings believed to be fibrosis. A granuloma is found in the upper right lung. The overall appearance is similar to that of the prior exam considering the differences in technique. IMPRESSION: Stable chest. Electronically signed by Giovanni Gill 12/24/2016 9:33 PM
[2016-12-24 21:41] LABS: BILIRUBIN URINE NEGATIVE (NEGATIVE); BLOOD URINE NEGATIVE (NEGATIVE); COLOR YELLOW; GLUCOSE URINE NEGATIVE (NEGATIVE); LEUKOCYTES URINE NEGATIVE (NEGATIVE); NITRITE URINE NEGATIVE (NEGATIVE); PROTEIN URINE 30 mg/dL (NEGATIVE); SP GRAVITY URINE 1.033; TURBIDITY URINE CLEAR (CLEAR); UR EPITHELIAL CELLS <10 /HPF (<10); URINE BACTERIA NEGATIVE /HPF; URINE RBC <10 /HPF (<10); URINE WBC <10 /HPF (<10); UROBILINOGEN URINE NORMAL (NORMAL)
[2016-12-24 21:43] LABS: BASO% 0.1 % (0.0-0.8); HEMATOCRIT 33.6 % (42.0-52.0); HEMOGLOBIN 10.2 g/dL (14.0-18.0); IMM GRAN# 0.02 X1000 (0.0-0.04); IMM GRAN% 0.2 % (0.0-0.5); LYMPH# 0.22 X1000 (1.2-3.4); LYMPH% 1.7 % (20.5-51.1); MANUAL DIFF NEEDED? NO; MCH 27.9 PG (27-31); MCHC 30.4 g/dL (33-37); MCV 91.8 FL (81-99); MONO# 0.28 X1000 (0.11-0.59); MONO% 2.2 % (1.7-9.3); MPV 9.6 FL (7.4-10.4); NEUT% 95.8 % (42.2-75.2); PLT 451 X1000 (130-400); RBC 3.66 XMIL (4.7-6.1)
[2016-12-24 21:49] LABS: AGAP 13; ALBUMIN 3.1 g/dL (3.5-5.0); ALKALINE PHOSPHATASE 110 U/L (32-122); BUN 41 mg/dL (8-22); CALCIUM 10.1 mg/dL (8.8-10.2); CHLORIDE 104 mmol/L (98-107); COSMO 304; GOT 30 U/L (10-34); GPT 23 U/L (10-44); MAGNESIUM 2.6 mg/dL (1.5-2.7); POTASSIUM 4.1 mmol/L (3.5-5.1); SODIUM 147 mmol/L (136-145); TCO2 30 mmol/L (25-35); TOTAL BILIRUBIN 0.24 mg/dL (0.20-1.00); TOTAL PROTEIN 8.3 g/dL (6.3-8.3)
[2016-12-24] MEDS ORDERED: NS 1,000 ML IV ONE ×2 (22:04→22:16)
[2016-12-24 22:07] LABS: FREE T4 1.1 ng/dL (0.93-1.70)
[2016-12-24] MEDS ORDERED: ZOFRAN IV PRN (22:15)
[2016-12-24] MEDS ORDERED: TYLENOL PO PRN (22:15)
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
[2016-12-24] MEDS ORDERED: HALDOL IV PRN (23:43)
[2016-12-24] MEDS ORDERED: PROLIXIN-D IM SCH (23:45)
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
[2016-12-25] MEDS: NS NEB INH SCH ×2 (03:47→22:34)
[2016-12-25] MEDS: XOPENEX NEB INH SCH ×4 (03:47→22:34)
[2016-12-25] MEDS: D5 1/2 NS 1,000 ML IV SCH ×2 (04:02→16:14)
[2016-12-25 07:08] LABS: HEMATOCRIT 31.2 % (42.0-52.0); HEMOGLOBIN 9.4 g/dL (14.0-18.0); MCH 28.1 PG (27-31); MCHC 30.1 g/dL (33-37); MCV 93.4 FL (81-99); MPV 9.7 FL (7.4-10.4); RBC 3.34 XMIL (4.7-6.1)
[2016-12-25 07:27] LABS: AGAP 15; BUN 35 mg/dL (8-22); CALCIUM 8.8 mg/dL (8.8-10.2); CHLORIDE 108 mmol/L (98-107); COSMO 304; POTASSIUM 4.5 mmol/L (3.5-5.1); SODIUM 148 mmol/L (136-145); TCO2 25 mmol/L (25-35)
[2016-12-25] MEDS: ADVAIR 250/50 DISKUS INH SCH ×2 (09:28→19:12)
[2016-12-25] MEDS ORDERED: GEODON IM PRN (11:11)
[2016-12-25] MEDS ORDERED: STERILE WATER INJ. INJ PRN (11:11)
[2016-12-25] MEDS: HYDROCODONE/APAP 7.5-325/15 ML PO PRN ×2 (11:25→18:52)
[2016-12-25] MEDS: ATIVAN IM PRN (11:30)
[2016-12-25] MEDS: ARTANE PO SCH ×2 (12:42→12:43)
[2016-12-25] MEDS: THERA M PLUS PO SCH (12:43)
[2016-12-25] MEDS: PREDNISONE PO SCH (12:43)
[2016-12-25] MEDS: NEURONTIN PO SCH ×2 (12:43→12:44)
[2016-12-25] MEDS: DOXYCYCLINE PO SCH (12:43)
[2016-12-25] MEDS: DURAGESIC 12 MICROGM/HR PATCH TD SCH (12:44)
[2016-12-25] MEDS: MYCOSTATIN SUSP PO SCH ×2 (12:44→16:14)
--- NOTE | 2016-12-25 14:48 | PROGRESS NOTE ---
DATE: 12/25/2016 SUBJECTIVE: This patient is ambulating and he is having difficulty eating. I will switch the liquid diet to a soft GI diet to see if he can do better with this. He was discharged yesterday and re-admitted afterwards. I have switched the p.o. pain medication to liquid instead of tablets. OBJECTIVE: Vital Signs: Temperature 97.3 degrees, pulse 107, respiratory rate 16, blood pressure 136/85, oxygen saturation 90% on room air. General: Chronically ill patient, cachectic, that is able to ambulate and he is tolerating food on and off. HEENT Normocephalic. No trauma. PERRLA. Neck: Supple. No JVD. No masses. Central trachea. Poor dentition. Chest: Clear to auscultation. No wheezing. No rales. Abdomen is soft, nontender, nondistended. No hepatosplenomegaly. Extremities: No edema. No clubbing. No cyanosis. Neurological examination. The patient is alert. It is really hard to understand what he is saying because he cannot articulate very well his words. He is following commands. He is tolerating food on and off. LABORATORY: WBC 18, hemoglobin 9.4, hematocrit 31.2, platelets 430,000. Sodium 148, potassium 4.5, chloride 108, bicarbonate 25. BUN 35, creatinine 0.7, glucose 132, calcium 8.8. ASSESSMENT AND PLAN: 1. Hypernatremia. This patient is getting D5 1/2 NS, I encouraged him to drink more water. It could be related to mild azotemia and steroids. He is on prednisone. 2. Chronic obstructive pulmonary disease, not in exacerbation. Continue with the same treatment. 3. Schizoaffective disorder. Probably this is not well controlled. He is on Depakote, Artane and Prolixin. We will continue with this medication and Haldol p.r.n. 4. Throat cancer. Hematology/oncology was following this patient. I do not think they need to see this patient right away unless there is a complication. We will continue with the same management for now, and I have switched his pain medication to liquid to see if he can swallow it. 5. Severe protein calorie malnutrition. This patient is tolerating food on and off. He is refusing any kind of IV treatment. DISPOSITION: This patient is homeless. drafting layout worker on board. I do believe this patient qualifies for hospice but he does not have a place to go. cc: Aquiles Kraft MD MTDD
[2016-12-26] MEDS: DEPAKENE LIQUID PO SCH ×3 (00:04→23:12)
[2016-12-26] MEDS: ZYPREXA ZYDIS PO SCH ×3 (00:04→23:15)
[2016-12-26] MEDS: DOXYCYCLINE PO SCH ×4 (00:05→23:13)
[2016-12-26] MEDS: REMERON SOLTAB PO SCH ×3 (00:05→23:13)
[2016-12-26] MEDS: HYDROCODONE/APAP 7.5-325/15 ML PO PRN ×2 (00:16→17:31)
[2016-12-26] MEDS: XOPENEX NEB INH SCH ×4 (03:36→20:21)
[2016-12-26] MEDS: ATIVAN IM PRN ×2 (04:46→20:03)
[2016-12-26 07:38] LABS: AGAP 12; BUN 32 mg/dL (8-22); CALCIUM 9.2 mg/dL (8.8-10.2); CHLORIDE 111 mmol/L (98-107); COSMO 303; POTASSIUM 4.3 mmol/L (3.5-5.1); SODIUM 149 mmol/L (136-145); TCO2 26 mmol/L (25-35)
[2016-12-26] MEDS ORDERED: D5W 1,000 ML IV SCH (07:47)
[2016-12-26] MEDS: NEURONTIN PO SCH ×4 (08:20→23:09)
[2016-12-26] MEDS: ARTANE PO SCH ×5 (08:20→23:10)
[2016-12-26] MEDS: PREDNISONE PO SCH (08:20)
[2016-12-26] MEDS: MYCOSTATIN SUSP PO SCH ×6 (08:20→20:29)
[2016-12-26] MEDS: THERA M PLUS PO SCH (08:20)
[2016-12-26] MEDS: ADVAIR 250/50 DISKUS INH SCH ×2 (10:43→20:33)
--- NOTE | 2016-12-26 12:47 | PROGRESS NOTE ---
DATE: 12/26/2016 SUBJECTIVE: This patient is ambulating and he is having difficulty eating. He is refusing also any kind of treatment through his IV, he has hypernatremia and I encouraged him to drink more water. OBJECTIVE: Vital Signs: Temperature 97.3 degrees, pulse 87, respiratory rate 16, blood pressure 135/87, O2 saturation 90 on room air. HEENT: Head normocephalic. No trauma. PERRLA. Neck: Supple. No JVD. No masses. Central trachea. Poor dentition. Chest: Clear to auscultation. No wheezing. No rales. Abdomen: Soft, nontender, nondistended. No hepatosplenomegaly. Extremities: No edema. No clubbing. No cyanosis. Neurological: The patient is alert. It is really hard to understand what he is saying because he cannot articulate his words very well. He is following commands. He is tolerating food on and off. LABORATORY: Sodium 149, potassium 4.3, chloride 111, bicarbonate 26, BUN 32, creatinine 0.7, glucose 89, calcium 9.2. ASSESSMENT AND PLAN: 1. Hypernatremia. This patient still hypernatremic. I have switched the fluids to D5 W and I encouraged him to drink more water. I will continue to monitor. 2. Chronic obstructive pulmonary disease not in exacerbation. Continue with the same treatment. 3. Schizoaffective disorder. Probably this is not well controlled. He is on Depakote, Artane, and Prolixin. We will continue with those medications and Haldol p.r.n. 4. Throat cancer. Hematology/Oncology is following these this patient, we will continue to monitor. 5. Severe protein calorie malnutrition. This patient is tolerating food on and off. He is refusing IV treatment. DISPOSITION: This patient is homeless. playground worker is on board. I do believe this patient qualifies for hospice but he does not have a place to go. cc: Aquiles Kraft MD
[2016-12-26] MEDS: NS NEB INH SCH (20:21)
[2016-12-27] MEDS: HYDROCODONE/APAP 7.5-325/15 ML PO PRN ×2 (03:48→21:22)
[2016-12-27] MEDS: ATIVAN IM PRN ×2 (03:48→17:24)
[2016-12-27] MEDS: NS NEB INH SCH (04:05)
[2016-12-27] MEDS: XOPENEX NEB INH SCH ×4 (04:06→22:09)
[2016-12-27 07:17] LABS: AGAP 13; BUN 35 mg/dL (8-22); CALCIUM 9.5 mg/dL (8.8-10.2); CHLORIDE 104 mmol/L (98-107); COSMO 295; POTASSIUM 4.5 mmol/L (3.5-5.1); SODIUM 145 mmol/L (136-145); TCO2 28 mmol/L (25-35)
[2016-12-27] MEDS: NEURONTIN PO SCH ×5 (09:31→21:21)
[2016-12-27] MEDS: MYCOSTATIN SUSP PO SCH ×4 (09:31→21:14)
[2016-12-27] MEDS: ARTANE PO SCH ×3 (09:32→17:25)
[2016-12-27] MEDS: PREDNISONE PO SCH (09:33)
[2016-12-27] MEDS: DOXYCYCLINE PO SCH ×2 (09:33→21:21)
[2016-12-27] MEDS: THERA M PLUS PO SCH (09:33)
[2016-12-27] MEDS: ADVAIR 250/50 DISKUS INH SCH ×2 (11:27→19:46)
--- NOTE | 2016-12-27 12:05 | PROGRESS NOTE ---
DATE: 12/27/2016 SUBJECTIVE: This patient is ambulating and he is having difficulty eating. He is tolerating mostly fluids per mouth but not solid food. His hypernatremia resolved. OBJECTIVE: Vital Signs: Temperature 98.6 degrees, pulse 101, respiratory rate 18, blood pressure 136/94, oxygen saturation 81 on room air. HEENT: Head normocephalic. No trauma. Poor dentition. PERRLA. Neck: Supple. No JVD. No masses. Central trachea. Chest: Clear to auscultation. No wheezing. No rales. Abdomen: Soft, nontender, nondistended. No hepatosplenomegaly. Extremities: No edema. No clubbing. No cyanosis. Neurological: The patient is alert. It is really hard to understand what he is saying because he cannot talk very well. He is following commands. He is tolerating food but mostly fluids. LABORATORY: Sodium 145, potassium 4.5, chloride 104, bicarbonate 28, BUN 35, creatinine 0.7, glucose 74, calcium 9.5. ASSESSMENT AND PLAN: 1. Hypernatremia, resolved. 2. Chronic obstructive pulmonary disease, not in exacerbation. Continue with the same treatment. 3. Schizoaffective disorder. Probably this is not well controlled but we will continue with the same medications. He looks better today. 4. Throat cancer. Hematology/oncology was following this patient. We will continue to monitor. I do not think we need to reconsult oncology again. 5. Severe protein calorie malnutrition. This patient is tolerating food on and off but mostly fluid. He has been refusing also IV treatment. 6. Disposition. This patient is homeless. toll testboard worker is on board. This patient meets criteria for hospice but he does not have a place to go. cc: Aquiles Kraft MD
[2016-12-27] MEDS ORDERED: HALDOL IM PRN (17:32)
[2016-12-27] MEDS: REMERON SOLTAB PO SCH (21:18)
[2016-12-27] MEDS: ZYPREXA ZYDIS PO SCH (21:18)
[2016-12-27] MEDS: DEPAKENE LIQUID PO SCH (21:22)
[2016-12-28] MEDS: ATIVAN IM PRN ×3 (03:24→21:58)
[2016-12-28] MEDS: XOPENEX NEB INH SCH ×4 (03:37→22:00)
[2016-12-28] MEDS: HYDROCODONE/APAP 7.5-325/15 ML PO PRN ×4 (07:50→21:38)
[2016-12-28] MEDS: ARTANE PO SCH ×3 (09:07→16:56)
[2016-12-28] MEDS: PREDNISONE PO SCH (09:07)
[2016-12-28] MEDS: DOXYCYCLINE PO SCH ×2 (09:07→21:37)
[2016-12-28] MEDS: NEURONTIN PO SCH ×3 (09:07→17:04)
[2016-12-28] MEDS: THERA M PLUS PO SCH (09:07)
[2016-12-28] MEDS: MYCOSTATIN SUSP PO SCH ×4 (09:08→21:20)
[2016-12-28] MEDS: ADVAIR 250/50 DISKUS INH SCH ×2 (11:18→22:00)
[2016-12-28] MEDS: DURAGESIC 12 MICROGM/HR PATCH TD SCH (17:12)
[2016-12-28] MEDS: REMERON SOLTAB PO SCH (21:34)
[2016-12-28] MEDS: ZYPREXA ZYDIS PO SCH (21:35)
[2016-12-28] MEDS: DEPAKENE LIQUID PO SCH (21:36)
[2016-12-29] MEDS: XOPENEX NEB INH SCH ×4 (04:45→23:04)
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
[2016-12-29] MEDS: ADVAIR 250/50 DISKUS INH SCH ×2 (08:02→19:26)
[2016-12-29] MEDS: DOXYCYCLINE PO SCH ×2 (08:28→20:24)
[2016-12-29] MEDS: ARTANE PO SCH ×3 (08:28→16:37)
[2016-12-29] MEDS: NEURONTIN PO SCH ×3 (08:28→16:37)
[2016-12-29] MEDS: PREDNISONE PO SCH (08:28)
[2016-12-29] MEDS: THERA M PLUS PO SCH (08:28)
[2016-12-29] MEDS: MYCOSTATIN SUSP PO SCH ×4 (08:55→20:24)
[2016-12-29] MEDS: ATIVAN IM PRN (09:57)
--- NOTE | 2016-12-29 11:25 | PROGRESS NOTE ---
DATE: 12/29/2016 SUBJECTIVE: The patient is more confused today. He does not follow commands. He is rejecting almost all care here now in the hospital. OBJECTIVE: Vital Signs: Temperature 97.6 degrees, heart rate 98, respiratory rate 18, blood pressure 138/90, O2 saturation 94% on room air. General Examination: This is a chronically ill- looking, malnourished and frail looking older than his age 61-year-old, male, lying in bed, in no acute distress. HEENT: Head is normocephalic, atraumatic. Anicteric sclerae and pale conjunctivae. Mucous membranes moist. Neck: Supple. No JVD noted. No carotid bruits. No lymphadenopathy. No thyromegaly. Cardiovascular: S1, S2 heard. No murmurs, gallops, or rubs. Regular rate and rhythm. Respiratory: Clear bilaterally to auscultation. No work of breathing or using accessory muscles. Abdomen: Soft, nontender to palpation. Bowel sounds present. No organomegaly. Extremities: No clubbing, cyanosis, or edema. Peripheral pulses present in both legs. Neurological exam: Patient talked not very much. It is really hard to understand what he is trying to say. He is not able to walk around. LABORATORY DATA: White cell count 18. Last labs are from 2 days ago when the BMP is completely fine. ASSESSMENT AND PLAN: 1. Hypernatremia. That condition is resolved. 2. COPD. Patient is not on any exacerbation. The physical examination did not disclose any wheezing. 3. Schizoaffective disorder. It is now well controlled. We will continue with home medications. 4. Throat cancer. Aware. 5. Protein calorie malnutrition. Sometimes he refused to eat and sometimes he is in the mood to get some food. He also has been refusing IV treatment. 6. Disposition. That is going to be difficult because this patient is homeless, he does not have any family at all. He has a friend who initially agreed to take this patient home but because this patient is a little bit confused and he looks malnourished and also has a medical conditions like schizoaffective disorder and history of cancer he refused to take him. So this patient I can anticipate is going to be here for a few weeks. We will continue following him. cc: Denis Duggan MD
[2016-12-29] MEDS: HYDROCODONE/APAP 7.5-325/15 ML PO PRN ×2 (12:44→20:54)
[2016-12-29] MEDS: REMERON SOLTAB PO SCH (20:21)
[2016-12-29] MEDS: ZYPREXA ZYDIS PO SCH (20:22)
[2016-12-29] MEDS: DEPAKENE LIQUID PO SCH (20:23)
[2016-12-30] MEDS: XOPENEX NEB INH SCH ×4 (03:15→21:28)
[2016-12-30] MEDS: ADVAIR 250/50 DISKUS INH SCH ×2 (07:19→21:28)
[2016-12-30] MEDS: DOXYCYCLINE PO SCH ×2 (08:53→21:23)
[2016-12-30] MEDS: PREDNISONE PO SCH (08:53)
[2016-12-30] MEDS: THERA M PLUS PO SCH (08:53)
[2016-12-30] MEDS: ARTANE PO SCH ×3 (08:53→17:00)
[2016-12-30] MEDS: HYDROCODONE/APAP 7.5-325/15 ML PO PRN (08:55)
[2016-12-30] MEDS: MYCOSTATIN SUSP PO SCH ×4 (08:55→21:24)
[2016-12-30] MEDS: NEURONTIN PO SCH ×3 (08:59→17:00)
[2016-12-30] MEDS ORDERED: LIPOSYN 20% 500 ML IV SCH ×2 (11:51→15:00)
[2016-12-30 12:53] LABS: MPV 9.8 FL (7.4-10.4)
[2016-12-30 13:06] LABS: INR 1.08; PROTIME 11.4 Seconds (9.2-11.7)
[2016-12-30] MEDS ORDERED: MBX SOLUTION MT PRN (13:35)
[2016-12-30] MEDS: ATIVAN IM PRN (14:09)
[2016-12-30] MEDS ORDERED: NS 250 ML ONE (14:39)
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
[2016-12-30] MEDS: CLINIMIX E 4.25%-5% SOLUTION 1,000 ML IV SCH (17:50)
[2016-12-30] MEDS ORDERED: SODIUM CHLORIDE 0.9% INJ SCH (19:00)
[2016-12-30] MEDS: ATIVAN IV PRN (19:45)
[2016-12-30] MEDS: PEPCID IV SCH (20:36)
[2016-12-30] MEDS ORDERED: PERICOLACE PO SCH (21:00)
[2016-12-30] MEDS: DEPAKENE LIQUID PO SCH (21:23)
[2016-12-30] MEDS: ZYPREXA ZYDIS PO SCH (21:24)
[2016-12-30] MEDS: REMERON SOLTAB PO SCH (21:24)
[2016-12-31] MEDS: ATIVAN IV PRN ×9 (00:04→23:13)
[2016-12-31] MEDS: MORPHINE IV PRN ×9 (02:32→23:13)
[2016-12-31] MEDS: CLINIMIX E 4.25%-5% SOLUTION 1,000 ML IV SCH (03:09)
[2016-12-31] MEDS: XOPENEX NEB INH SCH ×2 (03:25→09:42)
--- NOTE | 2016-12-31 03:57 | CONSULTATION ---
DATE OF CONSULTATION: 12/30/2016 REQUESTING PHYSICIAN: Dr. Pearce. REASON FOR CONSULTATION: Evaluation for PEG tube placement. HISTORY OF PRESENT ILLNESS: Mr. Delgado is a 61-year-old male, who was admitted on 12/24/2016 with agitation, altered mentation, and combativeness. He has been in [facility] in the past. He has a known history of oropharyngeal cancer, stroke, and COPD. During this hospital stay, the patient had decreased p.o. intake. They inserted a PICC line and have started him on TPN. The patient has a history of paranoid schizophrenia, and was not able to provide me with any history. All of the history was obtained from the records and the RN. Gastroenterology was consulted for a possible PEG tube evaluation. According to the records, the patient has a previous history of oropharyngeal cancer, for which he received chemotherapy and radiation, and is being followed by Dr. Bhakti Roberts. Since the chemotherapy and the radiation therapy, the patient has not been evaluated by ENT to evaluate the response. The patient has been having low p.o. intake, which is attributed to possible oropharyngeal cancer and altered mentation, psychological , and psychiatric illness. PAST MEDICAL HISTORY: 1. Oropharyngeal cancer. 2. CVA. 3. COPD. 4. Schizoaffective disorder. PAST SURGICAL HISTORY: 1. Tonsillectomy. 2. Oropharyngeal surgery. 3. Status post chemoradiation therapy for throat and neck cancer. SOCIAL HISTORY: Smokes 8 cigarettes a day. No history of alcohol. ALLERGIES: Penicillin and streptomycin. HOSPITAL MEDICATIONS: Clinimix 100 mL/h, diphenhydramine/aluminum-magnesium hydroxide/ lidocaine, magic mouthwash 15 mL 4 times a day, doxycycline 100 mg p.o. b.i.d., TPN with fat emulsion, and fentanyl patch every 2 hours, Advair, gabapentin, Haldol, levalbuterol, lorazepam, mirtazapine, morphine, multivitamin, nystatin, olanzapine, Zofran, prednisone 20 mg every day , Artane 5 mg p.o. 3 times daily, valproic acid 300 mg p.o. at bedtime, Geodon 10 mg IM every 6 hours, fluphenazine decanoate 125 mg IM as ordered. He is ordered a mechanical soft diet and Ensure. REVIEW OF SYSTEMS: Could not be obtained. The patient is not able to respond to any questions. PHYSICAL EXAMINATION: Vital Signs: Temperature 97.4, pulse rate of 110, respiratory rate 22, blood pressure 162/85, saturating 99 percent on room air. Body weight of 100 pounds. BMI of 115.7. General: Thinly-built. Currently awake, but not responding to any questions. He has been agitated at times. HEENT: Pale conjunctivae. No icterus. Neck: Supple. Chest: Limited chest exam showed decreased breath sounds at the bases. Heart: S1, S2. Tachycardic. Abdomen: Emaciated. Soft. No guarding. Extremities: No cyanosis or clubbing. Neurologic: Alert. He has schizoaffective disorder. Has been agitated at times. Orientation could not be assessed. LABORATORY STUDIES: Hemoglobin and hematocrit is 9.4 and 31.2, white count of 18.04, platelet count of 430,000. INR 1.08, PT of 11.4. Sodium 141, potassium 4.5, chloride 104, bicarb 28, BUN 35, creatinine 1.7, glucose of 74, calcium 9.5. Chest x-ray: Stable chest. Lungs are hyperexpanded. Multiple old right rib fractures. Increased interstitial markings, believed to be fibrosis. There are no masses found in the upper right lung. IMPRESSION AND PLAN: 1. T4, N2b, M0, stage Aimee, base of the tongue cancer, status post chemotherapy with Erbitux, ending on 09/25/2016, by Dr. Bhakti Roberts and radiation, being followed by Dr. Bhakti Roberts and oncology team. Dysphagia and poor oral intake. 2. Paranoid schizophrenia. 3. Schizoaffective disorder. 4. Severe protein calorie malnutrition. 5. Declining performance status. 6. Anemia. 7. Leukocytosis. 8. Chronic tobacco abuse. RECOMMENDATIONS: Since the patient has ongoing psychological and psychiatric issues, and he is agitated, on multiple medications, the risk of putting in a PEG tube in this setting are higher, as the patient can pull the PEG tube, and cannot take care of it. At this time , the patient will benefit from TPN and treatment of ongoing head and neck cancer and psychiatric illness per the primary care team. We will start the patient on GI prophylaxis with Protonix once daily. We will also start him on a bowel regimen as well. He has not listed as having any bowel movement since admission. He will need an ENT evaluation to evaluate his oropharyngeal tumor. Please consult us back if the above situation changes. I discussed the plan of care with the patient's nurse and all questions were answered. cc: MD Bhakti Puente MD Cesar Garcia-Rodriguez, MD MTDD
[2016-12-31] MEDS: PEPCID IV SCH (06:04)
[2016-12-31] MEDS: ARTANE PO SCH (08:23)
[2016-12-31] MEDS: DOXYCYCLINE PO SCH (08:25)
[2016-12-31] MEDS: ADVAIR 250/50 DISKUS INH SCH (09:44)
[2016-12-31 11:20] LABS: AGAP 13; ALBUMIN 2.3 g/dL (3.5-5.0); ALKALINE PHOSPHATASE 98 U/L (32-122); BUN 70 mg/dL (8-22); CALCIUM 9.1 mg/dL (8.8-10.2); CHLORIDE 119 mmol/L (98-107); COSMO 333; GOT 32 U/L (10-34); GPT 33 U/L (10-44); MAGNESIUM 2.9 mg/dL (1.5-2.7); PREALBUMIN 13.9 mg/dL (20-40); SODIUM 156 mmol/L (136-145); TCO2 24 mmol/L (25-35); TOTAL BILIRUBIN 0.19 mg/dL (0.20-1.00); TOTAL PROTEIN 6.7 g/dL (6.3-8.3); TRIGLYCERIDES 235 mg/dL (39-160)
--- NOTE | 2016-12-31 14:13 | PROGRESS NOTE ---
DATE: 12/31/2016 SUBJECTIVE: Patient is definitely more confused and more tired today with respiration a little bit faster today. OBJECTIVE: Vital Signs: Temperature 97.4 degrees, heart rate 88, respiratory rate 20, blood pressure 165/96, O2 saturation 98% on 2 L nasal cannula. General Examination: This is a chronically ill-looking, very malnourished and frail 61-year-old male, looking older than his age, lying in bed, in no acute distress. HEENT: Head is normocephalic, atraumatic. Signs of severe malnourishment. Neck: Supple. No JVD noted. No carotid bruits. Cardiovascular: S1, S2 heard. No murmurs, gallops, or rubs. Respiratory: Coarse breath sounds in both bases. The patient is not using any accessory muscles. Abdomen: Soft, nontender to palpation. Bowel sounds present. No organomegaly. Extremities: No clubbing, cyanosis, or edema. Peripheral pulses present in both legs. Neurological: Patient is definitely more lethargic. Does not follow commands. Moves 4 extremities continuously. LABORATORY DATA: None. ASSESSMENT AND PLAN: 1. Throat cancer. 2. Schizoaffective disorder. 3. Chronic obstructive pulmonary disease. 4. Severe protein calorie malnutrition. PLAN: Patient was admitted for all of the above conditions mentioned but during the last few days, today to be exact, he is declining quickly. He is more tired, he is breathing more faster. Considering his condition, his throat cancer without any treatment, severe malnutrition and encephalopathy now I think this patient is most likely close to dying. At this time, I prefer to stop Clinimix and lipid that will just make things last longer. We will start morphine and Ativan for management of his symptoms. We have talked with the sister who has given us a verbal ordered to change the status to DNR. We will continue monitoring this patient closely. cc: Denis Duggan MD
--- NOTE | 2016-12-31 15:03 | CONSULTATION ---
DATE OF CONSULTATION: 12/30/2016 REASON FOR CONSULTATION: Consultation is for head and neck cancer, patient known. HISTORY OF PRESENT ILLNESS: Mr. Delgado is a 61-year-old male who is known to us as we have previously treated him for head and neck cancer. The patient has a history of schizophrenia. He was originally at [facility] being treated for psych issues, but then was transferred to [facility] after he started losing weight and having decline in his performance status. This was back at the beginning of November. The patient was eventually discharged after State evaluation to [facility]. While there, the patient showed some combative behavior and was then readmitted to [facility]. The patient was starting to improve in regards to his p.o. intake. However, over the past couple days, the patient has a change in status. He is now having issues with eating. He is also having issues with nausea and vomiting. Patient was supposed to get follow-up scans after his treatment back in September 2016. However, the patient was unable to come for those appointments. His head and neck cancer has not been evaluated post treatment. PAST MEDICAL HISTORY: 1. Paranoid schizophrenia. 2. Neuropathy. 3. Head and neck cancer. SURGICAL HISTORY: Throat biopsy in 2012 and 2016. SOCIAL HISTORY: The patient currently is homeless. He was a current smoker prior to hospitalization. He also reports drinking occasional alcohol until recently. The patient also has a history of chewing tobacco. FAMILY HISTORY: The patient's father is alive. There is no family history of any known cancers. And the patient has no contact with his family. He has no guardian as of right now. REVIEW OF SYSTEMS: Ten point review of systems has been completed and is negative except for as in the HPI. PHYSICAL EXAMINATION: Vital Signs: Temperature 97.4, heart rate 106, respiration is 20, blood pressure 123/83, O2 saturation is 92% on room air. General: Emaciated male in his hospital bed on his knees bent forward. He does have a tech at bedside. He will answer yes and no to questions but isn't really talking. He is also hard to understand. HEENT : Head appears to be normocephalic, atraumatic. Eyes: Pupils are equal, round, reactive. Ears, nose, throat, neck, and mouth: Oral mucosa definitely with mucositis. He is requiring his mouth to be suctioned out. Having difficulty with swallowing. Hard to fully evaluate. Neck: Supple. Cardiovascular: S1, S2 heard. Tachycardia. Regular rhythm. Respiratory: Chest is essentially clear to auscultation bilaterally. Normal respiratory effort. Gastrointestinal : Abdomen is nondistended, nontender. Musculoskeletal: No bony abnormalities noted. Widespread muscle wasting noted. Skin: No petechiae or rashes noted. Extremities: No swelling. Neurologic: Patient is alert. Again he does not really participate in interview and cannot answer many of the questions asked. He will answer yes or no, and occasionally grunt. He seems somewhat agitated but is not combative. LABS AND STUDIES: CBC from 12/25 shows a white blood cell count of 18.04, hemoglobin 9.4, hematocrit 31.2, platelet count of 430,000. Sodium from 12/27 is 145, potassium 4.5, chloride 104, CO2 28, BUN 35, creatinine 0.7, glucose 74. ASSESSMENT/PLAN: 1. 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 The patient has now completed concurrent chemotherapy and radiation with Erbitux as of 09/25/2016. He did require the last few cycles of Erbitux to be held due to toxicities. Repeat scans were due in September but were not completed due to the patient being lost to followup. The patient has recently had a decline in his performance status. He is also having considerably increased difficulty with swallowing. At this time, we will proceed with ENT evaluation to assess his base of tongue cancer. The patient was previously evaluated in [facility]. 2. Severe protein calorie malnutrition. He continues on total parenteral nutrition now. Gastroenterology consult is currently pending. 3. Decline in performance status. Noted. Reevaluation of cancer status as per above. 4. Hypernatremia. This seems to have resolved at this point. Continue to monitor. Continue treatment as per primary team. 5. Oral thrush with mucositis. Continue Magic mouthwash and nystatin rinses. ENT evaluation as per above. 6. Psychiatric disorder. Continue current management. We want to thank you for consulting us on Mr. Delgado. We will continue to follow along and adjust our treatment plan per his hospital course. Dictated by FELICE Ring for Bhakti Roberts MD cc: Bhakti Roberts MD [facility]
[2016-12-31] MEDS: TRANSDERM-SCOP TD SCH (15:51)
[2016-12-31] MEDS: DURAGESIC 12 MICROGM/HR PATCH TD SCH (16:19)
[2017-01-01] MEDS: MORPHINE IV PRN ×8 (00:55→18:23)
[2017-01-01] MEDS: ATIVAN IV PRN ×2 (00:55→02:30)
--- NOTE | 2017-01-01 14:53 | PROGRESS NOTE ---
DATE: 01/01/2017 SUBJECTIVE: Patient is declining more in comparing with yesterday. More confused, and now he is lying in bed, breathing a little bit faster. OBJECTIVE: Vital Signs: Temperature 97.4 degrees, heart rate 60, respiratory rate 20, blood pressure 83/56. O2 saturation 100% 2 L nasal cannula. General Examination: This is a chronically ill-looking, very malnourished and frail, 61-year-old male, looking older than his age, lying in bed, in no acute distress. HEENT: Head is normocephalic, atraumatic. Neck: Supple. No JVD noted. No carotid bruits. Cardiovascular: S1, S2 heard. No murmurs, gallops, or rubs. Respiratory: Coarse breath sounds in both bases. The patient is not using any accessory muscles or having work of breathing. Abdomen: Soft, nontender to palpation. Bowel sounds present. No organomegaly. Extremities: No clubbing, cyanosis, or edema. The patient's muscle mass is almost gone completely. Neurological Examination: Patient is obtunded, does not follow commands. ASSESSMENT: 1. Throat cancer. 2. Schizoaffective disorder. 3. Chronic obstructive pulmonary disease. 4. Severe protein calorie malnutrition. PLAN: At this time, the plan for this patient is to be placed on comfort care measures only because it looks like day after day he is declining quickly, and now his mentation, he is more obtunded. He is breathing a little bit faster. His being malnourished will make him prone to develop an infection here. At this point, we are going to continue with morphine and Ativan to keep him comfortable. We will monitor this patient closely. cc: Denis Duggan MD
[2017-01-02] MEDS: MORPHINE IV PRN ×6 (00:56→22:45)
[2017-01-02] MEDS: ATIVAN IV PRN ×2 (01:22→03:36)
[2017-01-02] MEDS ORDERED: ATROPINE IV ONE (11:44)
--- NOTE | 2017-01-02 14:53 | PROGRESS NOTE ---
DATE: 01/02/2017 SUBJECTIVE: The patient continues to decline quickly. He is more confused, more lethargic. Breathing faster. OBJECTIVE: Vital Signs: Temperature 98.0 degrees, heart rate 94, respiratory rate 8, blood pressure 148/93, O2 saturations 98% on 4 L nasal cannula. General: This is a chronically ill- looking very malnourished and frail 61-year-old male looking older than his age lying in bed in no acute distress. HEENT: Head is normocephalic, atraumatic. Neck: Supple. No JVD. Cardiovascular: S1, S2 heard. No murmurs, gallops, rubs. Tachycardic. Respiratory: Coarse breath sounds in both bases. Patient not using accessory muscles or having work of breathing. Abdomen: Soft, nontender to palpation. Bowel sounds present. No organomegaly. Extremities: No clubbing, cyanosis, or edema. Peripheral pulses present in both legs. Muscle mass is almost gone completely. Neurologic: Patient lethargic, does not follow commands. ASSESSMENT AND PLAN: 1. Throat cancer. 2. Schizoaffective disorder. 3. Chronic obstructive pulmonary disease. 4. Severe protein malnutrition. PLAN: At this time we are providing comfort care measures only. Patient is declining quickly. We are continue checking on him and monitor him closely. Will continue with the same management. cc: Denis Duggan MD MTDD
[2017-01-03 05:43] VITALS: BP 64/39
[2017-01-03] MEDS: MORPHINE IV PRN ×3 (08:55→16:59)
[2017-01-03] MEDS: DURAGESIC 12 MICROGM/HR PATCH TD SCH (08:55)
[2017-01-03] MEDS: ATIVAN IV PRN ×2 (14:15→16:59)
[2017-01-03] MEDS: TRANSDERM-SCOP TD SCH (14:52)
--- NOTE | 2017-01-03 16:28 | PROGRESS NOTE ---
DATE: 01/03/2017 SUBJECTIVE: Patient continues to decline quickly. More confused today. More lethargic, does not follow commands. OBJECTIVE: Vitals: Temperature 98.2, heart rate 34, respiratory rate 12, blood pressure 64/39, and O2 saturation 93% on 5 L nasal cannula. General: This is a very malnourished chronically ill-looking and frail 61-year-old male looking older than his age, lying in bed, in no acute distress. HEENT: Head is normocephalic, atraumatic. Anicteric sclerae and pale conjunctivae. Mucous membranes moist. Neck: Supple. No JVD noted. No carotid bruits. Cardiovascular: S1, S2 heard. No murmurs, gallops, or rubs. Regular rate and rhythm. Respiratory: Clear bilaterally to auscultation. No work of breathing or using accessory muscles. Abdomen: Soft, nontender to palpation. Bowel sounds present. No organomegaly. Extremities: Peripheral pulses present. Faint. Neurologic: Patient is obtunded. Does not follow commands. ASSESSMENT AND PLAN: 1. End-stage throat cancer. 2. History of schizoaffective disorder. 3. Chronic obstructive pulmonary disease. 4. Severe protein calorie malnutrition. 5. At this point, we are providing comfort care measures only. Patient declining quickly. It seems like he is going to pass away quick. We are keeping this patient comfortable. 6. We are going to continue to monitor. cc: Denis Duggan MD
--- NOTE | 2017-01-03 19:19 | DISCHARGE SUMMARY ---
ADMISSION DATE: 12/24/2016 DISCHARGE DATE: 01/03/2017 DISCHARGE DIAGNOSES: 1. Patient passed out because of throat cancer, severe protein calorie malnutrition. 2. Chronic obstructive pulmonary disease. 3. Schizoaffective disorder. HOSPITAL COURSE: This was a 61-year-old male with a past medical history of schizoaffective disorder, with a history of oropharyngeal cancer, stroke, and COPD, who came from [facility] because of agitation issues. He was sent last time he was here to [facility], but because he was combative, he was sent back here to the hospital for evaluation. At this time, this patient was really agitated, and also he was noticed to be very malnourished. We have talked with his sister, who finally agreed, considering his poor prognosis, to change his status to DNR. Because of malnourishment and all his medical conditions, we preferred to provide comfort care measures only, because this patient was really malnourished, I think because he missed appointments with his oncologist and the cancer has started spreading out. He was not able to pass anything. We consulted in any case GI to see if there is any possibility to place a PEG tube, but he was considered not a good candidate for this procedure. He continues to decline quickly, and today around 173, the patient unfortunately passed out. cc: Denis Duggan MD
== END 2017-01-03 17:35 | disposition expired ==
LOC: ED 20:07 → 3N 20:07 → OBSVTOIN 23:30 → SUATTDRO 23:30
PROVIDERS: ATTEND Internal Medicine